=== PATIENT | female | born 1975 | race Caucasian/White ===

== ENCOUNTER 2016-06-09 11:49 | Emergency (ER) | payer MEDICAID ==
[2016-06-09 12:07] VITALS: BP 118/83; PULSE 86; RESP 17; TEMP 97.7; O2SAT 98
[2016-06-09 12:52] LABS: RBC URINE 4 /hpf (0-3); URINE BILIRUBIN NEGATIVE (NEGATIVE); URINE BLOOD 1+ (NEGATIVE); URINE COLOR Yellow (YELLOW); URINE GLUCOSE (UA) NORMAL (Normal); URINE KETONE NEGATIVE (NEGATIVE); URINE LEUKOCYTE ESTERASE 1+ Leu/uL (Negative); URINE PROTEIN NEGATIVE (NEGATIVE); URINE UROBILINOGEN NORMAL mg/dL (0.2-1.0); WBC URINE 5 /hpf (0-5)
--- NOTE | 2016-06-09 12:54 | RAD ---
HISTORY: productive cough fever COMPARISON: No prior. TECHNIQUE: Chest PA and lateral FINDINGS: LUNGS: No active pulmonary disease. PLEURA: No significant pleural effusion identified. No pneumothorax apparent. CARDIOVASCULAR: Normal. OSSEOUS STRUCTURES: No significant abnormalities. VISUALIZED UPPER ABDOMEN: Normal. OTHER FINDINGS: None. IMPRESSION: No active disease.
--- NOTE | 2016-06-09 13:01 | C.PDOC ---
History Of Present Illness 41 yr old female presents to the ER with complaints of productive cough with white sputum, fever, chills and right sided upper back pain for the past 5 days. Patient reports she was seen by her PMD 3 days and was started on steroids , cough medicine and Levaquin. Patient states she took 1 dose but the symptoms persist. Also notes foul smelling urine for the last couple of days. Denies (-) dysuria, urinary frequency, or hematuria or abdominal/back pain. Patient denies chest pain, SOB, nausea, vomiting, abdominal pain, headache, weakness or numbness. Time Seen by Provider: 06/09/16 12:14 Chief Complaint (Nursing): Cough, Cold, Congestion History Per: Patient, Manager [employer] History/Exam Limitations: language barrier Onset/Duration Of Symptoms: Days (5) Past Medical History Reviewed: Historical Data, Nursing Documentation, Vital Signs Vital Signs: Last Vital Signs Temp 97.7 F 06/09/16 12:03 Pulse 86 06/09/16 12:03 Resp 17 06/09/16 12:03 BP 118/83 06/09/16 12:03 Pulse Ox 98 06/09/16 14:44 Family History: States: Other (no pertinent family h/o) - Social History Hx Alcohol Use: No Hx Substance Use: No - Immunization History Hx Tetanus Toxoid Vaccination: No Hx Influenza Vaccination: No Hx Pneumococcal Vaccination: No Review Of Systems Except As Marked, All Systems Reviewed And Found Negative. Constitutional: Positive for: Fever (Subjective), Chills Cardiovascular: Negative for: Chest Pain Respiratory: Positive for: Cough, Sputum (White ). Negative for: Shortness of Breath Gastrointestinal: Negative for: Nausea, Vomiting, Abdominal Pain Genitourinary: Negative for: Dysuria, Frequency, Incontinence Musculoskeletal: Positive for: Back Pain (Right sided, upper) Neurological: Negative for: Weakness, Numbness, Headache Physical Exam - Physical Exam Appears: Well, Non-toxic, No Acute Distress, Other (no persistent cough noted) Skin: Warm, Dry, No Rash Head: Atraumatic, Normacephalic Eye(s): bilateral: Normal Inspection, EOMI Nose: Discharge (nasal discharge) Oral Mucosa: Moist Throat: Normal, No Erythema, No Exudate, No Drooling Neck: Normal, Normal ROM, Supple Lymphatic: Normal Exam Chest: Symmetrical, No Tenderness Cardiovascular: Rhythm Regular, No Murmur Respiratory: Normal Breath Sounds, No Rales, No Rhonchi, No Stridor, No Wheezing Gastrointestinal/Abdominal: Normal Exam, Soft, No Tenderness, No Guarding, No Rebound Back: No CVA Tenderness, No Vertebral Tenderness, Paraspinal Tenderness ((+) right side trapezius tenderness) Extremity: Normal ROM, No Swelling Neurological/Psych: Oriented x3, Normal Speech, Normal Motor ED Course And Treatment O2 Sat by Pulse Oximetry: 98 - Other Rad CXR X-Ray: Viewed By Me, Read By Radiologist Interpretation: HISTORY: productive cough fever. COMPARISON: No prior. TECHNIQUE: Chest PA and lateral. FINDINGS: LUNGS: No active pulmonary disease. PLEURA: No significant pleural effusion identified. No pneumothorax apparent. CARDIOVASCULAR: Normal. OSSEOUS STRUCTURES: No significant abnormalities. VISUALIZED UPPER ABDOMEN: Normal. OTHER FINDINGS: None. IMPRESSION: No active disease. Medical Decision Making Medical Decision Making: PLAN: * CXR * HXG Urine * Urinalysis * On reassessment, patient is resting comfortably with no wheezing, chest pain, or retractions. Oxygen saturation and breath sounds remains CTA and 96+%. Patient is alert and oriented x 3. Patient was advised to follow up with physician/clinic in 1-2 days and return to ED if symptoms worsen or persist. Disposition - Disposition Referrals: Azucena Berry MD [Staff Provider] - Disposition: HOME/ ROUTINE Disposition Time: 12:57 Condition: GOOD Additional Instructions: Follow up with your primary medical doctor or clinic in 2-5 days for further evaluation. Take medications as prescribed. Return to the emergency department at any time if symptoms persist or worsen. Instructions: Upper Respiratory Infection (ED) Print Language: POLISH - Clinical Impression Clinical Impression: Upper respiratory infection - PA / CEN[employer] OPERATOR / Resident Statement MD/DO has reviewed & agrees with the documentation as recorded. - Scribe Statement The provider has reviewed the documentation as recorded by the Daiibe Sneha Schaffer All medical record entries made by the Daiiblori were at my direction and personally dictated by me. I have reviewed the chart and agree that the record accurately reflects my personal performance of the history, physical exam, medical decision making, and the department course for this patient. I have also personally directed, reviewed, and agree with the discharge instructions and disposition.
== END 2016-06-09 13:09 | disposition home or self-care (01) ==
LOC: C.ER 11:49
DX: J06.9 Acute upper respiratory infection, unspecified (principal)